=== PATIENT | female | born 1950 | race Caucasian/White ===

== ENCOUNTER 2019-03-01 07:18 | Day surgery (SDC) | payer OTHER ==
[2019-03-01] MEDS ORDERED: NS 0.9% VIAL 10 ML ONE (07:38)
[2019-03-01] MEDS ORDERED: BALANCED SALT IRRIG PLAIN 500 ML BTL IRR ONE (07:39)
[2019-03-01] MEDS ORDERED: TETRACAINE HCL 0.5% 4ML OPTH ONE (07:39)
[2019-03-01] MEDS ORDERED: BUPIVACAINE 0.25% PF 10 ML VIAL ONE (07:39)
[2019-03-01] MEDS ORDERED: DUOVISC 1 KIT OPTH ONE (07:39)
[2019-03-01] MEDS ORDERED: LIDOCAINE 1% MPF 2 ML AMPULE ONE (07:39)
[2019-03-01] MEDS ORDERED: LIDOCAINE HCL/PF 3.5% OPTH GEL ONE (07:39)
[2019-03-01] MEDS ORDERED: LIDOCAINE 2% MPF 5 ML VIAL ONE (07:39)
[2019-03-01] MEDS ORDERED: EPINEPHRINE/PF 1 MG/ML AMP ONE (07:39)
[2019-03-01] MEDS ORDERED: NA CHLORIDE 0.9% 0 ML ONE (07:40)
[2019-03-01] MEDS ORDERED: NA CHLORIDE 0.9% 500 ML ONE (07:41)
[2019-03-01] MEDS: PHENYLEPHRINE 10% OPTH 5ML ONE ×3 (07:53→08:03)
[2019-03-01] MEDS: CYCLOPENTOLATE 1% OPTH 2 ML ONE ×3 (07:53→08:03)
[2019-03-01] MEDS ORDERED: MIDAZOLAM HCL 2 MG/2 ML INJ ONE (08:41)
[2019-03-01] MEDS ORDERED: FENTANYL CITR 100 MCG/2 ML ONE (08:41)
[2019-03-01] MEDS: MOXIFLOXACIN HCL 10 DROPS/ML **OR USE OPTH ONE ×2 (09:24→09:40)
--- NOTE | 2019-03-01 09:46 | P.BOP ---
Preoperative diagnosis: Nuclear sclerotic cataract and angle closure OD Postoperative diagnosis: Same Primary procedure: Phacoemulsification with IOL OD Estimated blood loss: None Anesthesia: Local (Topical with anesthesia for catract surgery) Complications: None Implants: ZCB00 +32.0 Transferred to: Other (Day surgery) Condition: Good
--- NOTE | 2019-03-01 20:37 | OP ---
Date of Procedure: 03/01/2019 Surgeon: Merly Billings MD Anesthesiologist: Sylvia Cunningham CRNA and Joby Cardenas MD. Preoperative Diagnosis: Nuclear sclerotic cataract and narrow angle, right eye. Operation Performed: Phacoemulsification with intraocular lens implant, right eye. Anesthesia: Per cataract surgery. Complications: None. Description Of Procedure: In the operating room the patient was prepped and draped in the usual ster ile fashion for ophthalmic surgery. A lid speculum was placed in the right eye. Two paracentesis si stacie were made superiorly and inferiorly in the limbal cornea. Viscoat was placed in the anterior prema mber and a crescent blade was used to make a corneal groove and tunnel, and a keratome was used to en ter the anterior chamber. Provisc was placed in the anterior chamber and a 360 degree capsulotomy wa s performed with a cystitome. The lens was hydrodissected with BSS and rotated freely. The lens was removed with a stop and chop technique. 1.89 phaco CDE was used to remove the lens. Residual deirdre x was removed with the irrigation and aspiration. Provisc was placed in the capsular bag. A ZCB00 + 32.0 lens was placed in the capsular bag without complications. Irrigation and aspiration was used t o remove residual viscoelastic. The paracentesis sites were hydrated with BSS. The wound and parace ntesis sites were inspected and found to be watertight. Vigamox 0.07 cc was placed intracamerally at the end of the procedure. The eye was irrigated with balanced salt solution. The eye was patched w ith a soft cotton patch and Toussaint metal shield. The patient was returned to day surgery in good condition. Comments: Akten was placed in the eye in Day Surgery and irrigated out of the eye with BSS in the OR . Preservative free 1% lidocaine was placed in the anterior chamber prior to Viscoat. Discharge Instructions: Ms. Diaz is discharged to home in good condition. She is to follow up [facility] Dr. Billings in the morning. CLAUDIA/MODL Voice ID: [id number] Report ID: [id number]
== END 2019-03-01 10:18 | disposition home or self-care (01) ==
LOC: OR 07:18
PROVIDERS: ATTEND Ophthalmology Retina Specialist
PROC: 08RJ3JZ Replacement of Right Lens with Synthetic Substitute, Percutaneous Approach (ICD-10-PCS; principal; 2019-03-01 09:10)
DX: H25.11 Age-related nuclear cataract, right eye (principal); H40.20X0 Unspecified primary angle-closure glaucoma, stage unspecified; I10 Essential (primary) hypertension; L40.9 Psoriasis, unspecified; E78.00 Pure hypercholesterolemia, unspecified; Z85.828 Personal history of other malignant neoplasm of skin; Z79.82 Long term (current) use of aspirin; Z88.8 Allergy status to other drugs, medicaments and biological substances; Z83.518 Family history of other specified eye disorder; Z83.3 Family history of diabetes mellitus; Z82.3 Family history of stroke
CPT/HCPCS: 66984; J0171; J2250; J3010; J2001; J7030